=== PATIENT | male | born 1995 | race African-American/Black ===

== ENCOUNTER 2017-03-22 08:31 | Emergency (ER) | payer SELFPAY | END 2017-03-22 09:06 | disposition home or self-care (01) | LOC: MADERS 08:31 | DX: H10.9 Unspecified conjunctivitis (principal); F17.210 Nicotine dependence, cigarettes, uncomplicated | CPT/HCPCS: 99282 ==

== ENCOUNTER 2017-05-18 12:16 | Emergency (ER) | payer OTHER, SELFPAY ==
[2017-05-18] MEDS ORDERED: Promethazine HCl 25 MG/ML VIAL ONE (12:50)
== END 2017-05-18 13:05 | disposition home or self-care (01) ==
LOC: MADERS 12:16
DX: K52.9 Noninfective gastroenteritis and colitis, unspecified (principal); F17.210 Nicotine dependence, cigarettes, uncomplicated
CPT/HCPCS: 96372; J2550

== ENCOUNTER 2017-08-14 19:58 | Emergency (ER) | payer OTHER ==
[2017-08-14] MEDS ORDERED: AMOXicillin 250 MG CAP ONE (20:21)
[2017-08-14] MEDS ORDERED: HYDROcodone/Acetaminophen 10/325 mg Tablet ONE (20:21)
[2017-08-14] MEDS ORDERED: Naproxen 500 MG TAB ONE (20:22)
== END 2017-08-14 20:30 | disposition home or self-care (01) ==
LOC: MADERS 19:58
DX: K02.9 Dental caries, unspecified (principal); F17.210 Nicotine dependence, cigarettes, uncomplicated
CPT/HCPCS: 99282

== ENCOUNTER 2017-08-20 15:07 | Emergency (ER) | payer OTHER, SELFPAY ==
[2017-08-20] MEDS ORDERED: Naproxen 500 MG TAB PO SCH (15:30)
[2017-08-20] MEDS ORDERED: diphenhydrAMINE 25 MG CAP PO SCH (15:30)
[2017-08-20] MEDS ORDERED: HYDROcodone/Acetaminophen 10/325 mg Tablet PO PRN (15:30)
[2017-08-20] MEDS ORDERED: diphenhydrAMINE 25 MG CAP ONE (15:38)
[2017-08-20] MEDS ORDERED: HYDROcodone/Acetaminophen 10/325 mg Tablet ONE (15:38)
[2017-08-20] MEDS ORDERED: Naproxen 500 MG TAB ONE (15:38)
== END 2017-08-20 15:50 | disposition home or self-care (01) ==
LOC: MADERS 15:07
DX: K04.7 Periapical abscess without sinus (principal); F17.210 Nicotine dependence, cigarettes, uncomplicated
CPT/HCPCS: 99282

== ENCOUNTER 2017-09-18 21:45 | Emergency (ER) | payer OTHER ==
[2017-09-18] MEDS ORDERED: Ibuprofen 800 MG TAB ONE (22:13)
[2017-09-18] MEDS ORDERED: Acetaminophen 500 MG TAB ONE (22:13)
[2017-09-18] MEDS ORDERED: Penicillin V Potassium 250 MG TAB ONE (22:13)
== END 2017-09-18 22:40 | disposition home or self-care (01) ==
LOC: MADERS 21:45
DX: K02.9 Dental caries, unspecified (principal); F17.210 Nicotine dependence, cigarettes, uncomplicated
CPT/HCPCS: 99282

== ENCOUNTER 2018-05-14 20:48 | Emergency (ER) | payer OTHER ==
[~2018-05-14 20:48] MED LIST: Sodium Chloride 0.9% 1,000 ML BAG ONE
[2018-05-14] MEDS ORDERED: Lorazepam 2 MG/ML VIAL ONE (21:10)
[2018-05-14 21:34] LABS: Band 1 % (5-11); Hemoglobin 14.8 g/dL (14.0-18.0); MDiff Complete? YES; Mean Corpuscular HGB CONC 32.6 g/dL (32.0-36.0); Mean Corpuscular Volume 82.8 fL (78.0-98.0); Mean Platelet Volume 6.8 fL (7.4-10.4); Neutrophil 32 % (42-75); Platelet Count 331 thou/uL (130-400); Red Blood Cell (RBC) Count 5.46 mill/uL (4.70-6.10); White Blood Cell (WBC) Count 12.4 thou/uL (4.8-10.8)
[2018-05-14 21:35] LABS: Lymphocytes 58 % (21-51); Monocytes 9 % (0-10)
[2018-05-14 21:38] LABS: ALT (SGPT) 29 U/L (8-55); AST (SGOT) 30 U/L (5-34); Albumin 4.7 g/dL (3.5-5.0); Alkaline Phosphatase 69 U/L (40-150); Anion Gap 31 mmol/L (10-20); BUN (Urea Nitrogen) 13 mg/dL (8.9-20.6); Bilirubin, Total 0.5 mg/dL (0.2-1.2); Calc. Creatinine Clearance 0 mL/min (70-130); Calcium 10.8 mg/dL (7.8-10.44); Carbon Dioxide 12 mmol/L (22-29); Chloride 102 mmol/L (98-107); Estimated GFR-MDRD 80; Globulin 3.7 g/dL (2.4-3.5); Glucose 84 mg/dL (70-105); Potassium 3.7 mmol/L (3.5-5.1); Protein, Total 8.4 g/dL (6.0-8.3); Sodium 141 mmol/L (136-145)
--- NOTE | 2018-05-14 21:42 | RAD ---
PORTABLE CHEST ONE VIEW: 05/14/18 at 9:09 p.m. HISTORY: Shortness of breath. FINDINGS: Comparison is made with exam of 12/25/13. The heart size is normal. The lungs are expanded without focal areas of consolidation, pneumothoraces or pleural effusions. IMPRESSION: No radiographic evidence of cardiopulmonary process. POS: [facility]
== END 2018-05-14 22:52 ==
LOC: MADERS 20:48
DX: F41.1 Generalized anxiety disorder (principal); F17.210 Nicotine dependence, cigarettes, uncomplicated
CPT/HCPCS: 36415; 71045; 80053; 84484; 85025; 93005; 96361; 96374; J2060; J7050

== ENCOUNTER 2018-05-17 21:41 | Emergency (ER) | payer OTHER ==
[2018-05-17] MEDS ORDERED: Lorazepam 2 MG/ML VIAL ONE (21:47)
[2018-05-17] MEDS ORDERED: Haloperidol Lactate 5 MG/ML VIAL ONE (22:09)
== END 2018-05-17 22:47 ==
LOC: MADERS 21:41
DX: F41.9 Anxiety disorder, unspecified (principal); F19.10 Other psychoactive substance abuse, uncomplicated; F17.210 Nicotine dependence, cigarettes, uncomplicated
CPT/HCPCS: 96361; 96372; 96374; J1630; J2060; J7050

== ENCOUNTER 2018-05-18 15:52 | Emergency (ER) | payer OTHER ==
[2018-05-18] MEDS ORDERED: Lorazepam 2 MG/ML VIAL ONE (16:10)
--- NOTE | 2018-05-18 17:24 | RAD ---
FRONTAL VIEW CHEST SERIES: 05/18/18 COMPARISON: 05/14/18. INDICATION: Dyspnea. FINDINGS: The lungs are clear. There is no effusion or pneumothorax. No free air beneath the hemidiaphragms. Ca rdiac silhouette is within normal limits in size. IMPRESSION: No focal consolidation. POS: [facility]
[2018-05-18 17:29] LABS: #Basophils 0.1 thou/uL (0.0-0.2); #Eosinphils 0.1 thou/uL (0.0-0.7); #Lymphocytes 2.1 thou/uL (1.20-3.40); #Monocytes 0.6 thou/uL (0.11-0.59); #Neutrophils 4.1 thou/uL (1.40-6.50); %Basophils 1.4 % (0.0-1.0); %Eosinophils 0.8 % (0.0-10.0); %Lymphocytes 30.4 % (21.0-51.0); %Monocytes 8.5 % (0.0-10.0); Hemoglobin 12.9 g/dL (14.0-18.0); Mean Corpuscular HGB CONC 34.1 g/dL (32.0-36.0); Mean Corpuscular Volume 82.1 fL (78.0-98.0); Mean Platelet Volume 6.4 fL (7.4-10.4); Platelet Count 229 thou/uL (130-400); RBC Distribution Width 12.9 % (11.5-14.5); White Blood Cell (WBC) Count 6.9 thou/uL (4.8-10.8)
[2018-05-18 17:40] LABS: ALT (SGPT) 24 U/L (8-55); AST (SGOT) 51 U/L (5-34); Albumin 3.9 g/dL (3.5-5.0); Alkaline Phosphatase 60 U/L (40-150); Anion Gap 14 mmol/L (10-20); BUN (Urea Nitrogen) 9 mg/dL (8.9-20.6); Bilirubin, Total 0.5 mg/dL (0.2-1.2); Calc. Creatinine Clearance 0 mL/min (70-130); Calcium 9.5 mg/dL (7.8-10.44); Carbon Dioxide 25 mmol/L (22-29); Chloride 108 mmol/L (98-107); Estimated GFR-MDRD Greater than 90; Globulin 2.6 g/dL (2.4-3.5); Glucose 96 mg/dL (70-105); Protein, Total 6.5 g/dL (6.0-8.3); Sodium 144 mmol/L (136-145)
[2018-05-18] MEDS ORDERED: Potassium Chloride 20 MEQ TAB ONE (17:52)
== END 2018-05-18 18:22 | disposition short-term general hospital (02) ==
LOC: MADERS 15:52
DX: R94.31 Abnormal electrocardiogram [ECG] [EKG] (principal); F17.210 Nicotine dependence, cigarettes, uncomplicated
CPT/HCPCS: 36415; 71045; 80053; 83880; 84484; 85025; 93005; 96372; J2060

== ENCOUNTER 2018-12-10 09:53 | Emergency (ER) | payer OTHER, SELFPAY ==
[2018-12-10] MEDS ORDERED: Benzonatate 100 MG CAP ONE (14:58)
[2018-12-10] MEDS ORDERED: Oseltamivir 75 MG CAP ONE (14:58)
[2018-12-10] MEDS ORDERED: Ondansetron ODT 4 MG TAB ONE (14:58)
== END 2018-12-10 15:05 | disposition home or self-care (01) ==
LOC: MADERS 09:53
DX: J11.1 Influenza due to unidentified influenza virus with other respiratory manifestations (principal); J45.909 Unspecified asthma, uncomplicated; F17.210 Nicotine dependence, cigarettes, uncomplicated
CPT/HCPCS: 87804; 99283; Q0162

== ENCOUNTER 2019-01-24 22:47 | Emergency (ER) | payer OTHER ==
[2019-01-24 23:46] LABS: Bilirubin Negative (Negative); Blood, Urine Trace (Negative); Clarity Clear (Clear); Glucose, Urine (Dipstick) Negative (Negative); Leukocyte Negative (Negative); Nitrite Negative (Negative); Protein, Urine (Dipstick) Negative (Neg-Trace); Urobilinogen 0.2 mg/dL (0.2-1.0)
[2019-01-24 23:49] LABS: Bacteria/HPF None Seen HPF (None Seen); Squamous Epithelial 0-3 HPF (0-3); WBC/HPF 0-3 HPF (0-3)
[2019-01-27 00:19] LABS: Chlam.trachomatis by PCR,Urine Not Detected (NotDetected)
== END 2019-01-25 00:07 | disposition home or self-care (01) ==
LOC: MADERS 22:47
DX: R10.30 Lower abdominal pain, unspecified (principal); R30.0 Dysuria; F17.210 Nicotine dependence, cigarettes, uncomplicated; J45.909 Unspecified asthma, uncomplicated
CPT/HCPCS: 81003; 81015; 87491; 87591; 99284

== ENCOUNTER 2019-02-05 18:15 | Emergency (ER) | payer SELFPAY ==
[2019-02-05] MEDS ORDERED: Loperamide HCl 2 MG CAP ONE (18:54)
[2019-02-05] MEDS ORDERED: Dicyclomine 10 MG CAP ONE (18:54)
== END 2019-02-05 19:00 | disposition home or self-care (01) ==
LOC: MADERS 18:15
DX: R19.7 Diarrhea, unspecified (principal); J45.909 Unspecified asthma, uncomplicated; F17.210 Nicotine dependence, cigarettes, uncomplicated
CPT/HCPCS: 99283

== ENCOUNTER 2019-03-08 18:43 | Emergency (ER) | payer SELFPAY | END 2019-03-08 19:09 | disposition home or self-care (01) | LOC: MADERS 18:43 | DX: H57.89 Other specified disorders of eye and adnexa (principal); F17.210 Nicotine dependence, cigarettes, uncomplicated | CPT/HCPCS: 99281 ==

== ENCOUNTER 2019-03-18 17:54 | Emergency (ER) | payer SELFPAY | END 2019-03-18 18:25 | disposition home or self-care (01) | LOC: MADERS 17:54 | DX: R19.7 Diarrhea, unspecified (principal); F17.210 Nicotine dependence, cigarettes, uncomplicated | CPT/HCPCS: 99281 ==

== ENCOUNTER 2022-06-30 23:51 | Emergency (ER) | payer SELFPAY ==
[2022-07-01 00:38] LABS: Bilirubin Negative (Negative); Blood, Urine Negative (Negative); Clarity Clear (Clear); Glucose, Urine (Dipstick) Negative (Negative); Ketone, Urine Negative (Negative); Leukocyte Negative (Negative); Nitrite Negative (Negative); Protein, Urine (Dipstick) Negative (Neg-Trace); Urobilinogen 0.2 mg/dL (Less than 2)
[2022-07-01 00:44] LABS: Amphetamine Not Detected (NotDetected); Barbiturates Screen Not Detected (NotDetected); Benzodiazepine Screen Not Detected (NotDetected); Cocaine Metabolite Screen Not Detected (NotDetected); Medtox Control Line Valid? VALID (VALID); Methadone Not Detected (NotDetected); Methamphetamine Not Detected (NotDetected); Opiate Screen Not Detected (NotDetected); Oxycodone Screen Not Detected (NotDetected); Phencyclidine (PCP) Not Detected (NotDetected); THC/Cannabinoid Screen Detected (NotDetected); Tricyclic Screen Not Detected (NotDetected)
[2022-07-01 00:51] LABS: Specific Gravity, Urine 1.006 (1.002-1.036)
[2022-07-01 01:21] LABS: #Basophils 0.1 thou/uL (0.0-0.2); #Lymphocytes 3.1 thou/uL (1.20-3.40); #Monocytes 0.6 thou/uL (0.11-0.59); #Neutrophils 5.7 thou/uL (1.40-6.50); %Eosinophils 0.2 % (0.0-10.0); %Lymphocytes 32.8 % (21.0-51.0); %Monocytes 5.9 % (0.0-10.0); %Neutrophils 60.1 % (42.0-75.0); Hemoglobin 13.3 g/dL (14.0-18.0); Mean Corpuscular HGB CONC 31.8 g/dL (32.0-36.0); Mean Corpuscular Hemoglobin 27.1 pg (27.0-31.0); Mean Corpuscular Volume 85.2 fL (78.0-98.0); Platelet Count 244 thou/uL (130-400); RBC Distribution Width 12.9 % (11.5-14.5); White Blood Cell (WBC) Count 9.5 thou/uL (4.8-10.8)
[2022-07-01 01:43] LABS: Acetaminophen Less than 10.0 mcg/mL (10.0-30.0); Alcohol 187 mg/dL (Less than 10); Lipase 29 U/L (8-78); Salicylate Less than 8.0 mg/dL (15.0-30.0)
[2022-07-01 01:45] LABS: ALT (SGPT) 31 U/L (8-55); AST (SGOT) 34 U/L (5-34); Albumin 4.6 g/dL (3.5-5.0); Alkaline Phosphatase 71 U/L (40-110); Anion Gap 17 mmol/L (10-20); BUN (Urea Nitrogen) 15 mg/dL (8.9-20.6); Bilirubin, Total 0.6 mg/dL (0.2-1.2); Calc. Creatinine Clearance 0 mL/min (70-130); Calcium 9.6 mg/dL (7.8-10.44); Carbon Dioxide 22 mmol/L (22-29); Chloride 108 mmol/L (98-107); Estimated GFR 84; Globulin 3.2 g/dL (2.4-3.5); Glucose 97 mg/dL (70-105); Magnesium 2.1 mg/dL (1.6-2.6); Potassium 3.5 mmol/L (3.5-5.1); Protein, Total 7.8 g/dL (6.0-8.3); Sodium 143 mmol/L (136-145)
== END 2022-07-01 02:45 ==
LOC: MADERS 23:51
DX: S02.2XXA Fracture of nasal bones, initial encounter for closed fracture (principal); S21.132A Puncture wound without foreign body of left front wall of thorax without penetration into thoracic cavity, initial encounter; S00.531A Contusion of lip, initial encounter; S80.212A Abrasion, left knee, initial encounter; R45.1 Restlessness and agitation; R29.700 NIHSS score 0; F17.210 Nicotine dependence, cigarettes, uncomplicated; F10.129 Alcohol abuse with intoxication, unspecified; X58.XXXA Exposure to other specified factors, initial encounter; Y90.6 Blood alcohol level of 120-199 mg/100 ml
CPT/HCPCS: 51701; 70450; 71045; 72125; 80053; 80306; 80307; 81003; 83690; 83735; 84443; 84484; 85025; 93005; 94760